=== PATIENT | female | born 1970 | race Hispanic/Latino ===

== ENCOUNTER → 2018-08-12 09:24 | Outpatient (CLI) | payer OTHER, SELFPAY ==
--- NOTE | 2018-08-12 09:26 | DI.RAD.S_ITS ---
PROCEDURE: XR CHEST 2V INDICATIONS: HISTORY OF BACILLUS CALMETTE, SCREENING EXAM TECHNIQUE: 2 views of the chest were acquired. COMPARISON: [facility], CHEST 2 VIEW, 08/21/2016, 15:58. [facility], CHEST 2 VIEW, 08/11/2017, 10:06. FINDINGS: Surgical changes and devices: None. Lungs and pleura: No pleural effusions or pneumothorax. Lungs are clear. Mediastinum: Mediastinal contours are normal. Heart size is normal. Bones and chest wall: No suspicious bony abnormalities. Soft tissues appear unremarkable. IMPRESSION: No active or chronic pulmonary tuberculosis identified radiographically. Dictated by: Isidoro Meeks [facility] Interpreted: Jennifer Chan MD on 08/12/2018 at 9:50 Approved by: Jennifer Chan M.D. on 08/12/2018 at 10:37
== END ==
PROVIDERS: Visit Provider Registered Nurse
DX: Z11.1 Encounter for screening for respiratory tuberculosis (principal); Z92.29 Personal history of other drug therapy
CPT/HCPCS: 71046

== ENCOUNTER → 2018-08-17 09:07 | Outpatient (CLI) | payer OTHER, SELFPAY ==
[2018-08-17 09:23] LABS: Add Manual Diff / Slide Review NO; Basophils Percent Auto 0.9 % (0-2); Eosinophils Percent Auto 2.4 % (2-4); Hematocrit 40.9 % (36-46); Hemoglobin 14.2 g/dL (12.0-16.0); Lymphocytes Percent Auto 33.6 % (25-40); Mean Corpuscular HGB Conc 34.7 % (30-36); Mean Corpuscular Volume 83.5 fL (80-100); Monocytes Percent Auto 5.8 % (3-14); Neutrophils Absolute Auto 3900 /uL (3000-5900); Neutrophils Percent Auto 57.3 % (50-75); Platelet Count 333 X10^3/uL (150-400); Red Cell Distribution Width 13.8 % (11.6-14.8); White Blood Cell Count 6.9 X10^3/uL (4.5-11.0)
[2018-08-17 09:38] LABS: Alanine Aminotransferase 40 IU/L (9-52); Albumin 4.4 g/dL (3.5-5.0); Albumin Globulin Ratio 1.5 (1.0-2.8); Alkaline Phosphatase 90 U/L (38-126); Aspartate Aminotransferase 23 IU/L (14-36); Bilirubin Total 0.6 mg/dL (0.2-1.3); Blood Urea Nitrogen 11 mg/dL (7-17); Calcium 8.9 mg/dL (8.4-10.2); Carbon Dioxide 28 mmol/L (22-32); Chloride 103 mmol/L (98-107); Cholesterol 232 mg/dL (140-199); Estimated Glomerular Filt Rate > 60.0 mL/min (>60); Glucose 95 mg/dL (70-100); HDL Cholesterol 41 mg/dL (40-60); HEMOLYSIS < 15 (0-50); LDL Cholesterol Calculated 120 mg/dL (<100); Sodium 143 mmol/L (137-145); Total Protein 7.4 g/dL (6.3-8.2); Triglycerides 356 mg/dL (35-150)
[2018-08-17 11:06] LABS: Thyroid Stimulating Hormone 1.47 uIU/mL (0.47-4.68)
== END ==
PROVIDERS: PCP Registered Nurse; Visit Provider Registered Nurse
DX: R42 Dizziness and giddiness (principal); E78.5 Hyperlipidemia, unspecified; Z01.82 Encounter for allergy testing
CPT/HCPCS: 36415; 80053; 80061; 84443; 85025; 86787

== ENCOUNTER → 2019-07-02 12:07 | Outpatient (CLI) | payer OTHER, SELFPAY ==
--- NOTE | 2019-07-02 12:10 | DI.MG.S_ITS ---
BILATERAL DIGITAL SCREENING MAMMOGRAM 3D/2D WITH CAD: 07/02/2019 CLINICAL: Routine screening. Family history of breast cancer. Comparison is made to exams dated: 09/02/2017 mammogram, 02/12/2015 mammogram, 10/12/2013 mammogram, and 09/06/2013 mammogram - [facility]. The tissue of both breasts is heterogeneously dense. This may lower the sensitivity of mammography. Current study was also evaluated with a Computer Aided Detection (CAD) system. No significant masses, calcifications, or other findings are seen in either breast. There has been no significant interval change. IMPRESSION: NEGATIVE There is no mammographic evidence of malignancy. A 1 year screening mammogram is recommended. This exam was interpreted at Station ID: [id number]. NOTE: For mammograms, a report in lay terms will be sent to the patient. Approximately 15% of breast malignancies will not be visualized mammographically. In the management of a palpable breast mass, a negative mammogram must not discourage biopsy of a clinically suspicious lesion. Electronically Signed By: Magan [email or web address]/[email or web address]:07/04/2019 17:43:34 letter sent: Normal Exam ACR BI-RADS Category 1: Negative [id number]
== END ==
PROVIDERS: PCP Registered Nurse; Visit Provider Registered Nurse
DX: Z12.31 Encounter for screening mammogram for malignant neoplasm of breast (principal); Z12.39 Encounter for other screening for malignant neoplasm of breast; Z80.3 Family history of malignant neoplasm of breast
CPT/HCPCS: 77063; 77067

== ENCOUNTER → 2019-07-09 10:39 | Outpatient (CLI) | payer OTHER, SELFPAY ==
[2019-07-09 13:39] LABS: Cholesterol 245 mg/dL (140-199); HDL Cholesterol 41 mg/dL (40-60); LDL Cholesterol Calculated 133 mg/dL (<100); Triglycerides 353 mg/dL (35-150)
== END ==
PROVIDERS: PCP Registered Nurse; Visit Provider Registered Nurse
DX: E78.5 Hyperlipidemia, unspecified (principal)
CPT/HCPCS: 36415; 80061

== ENCOUNTER → 2019-09-19 07:40 | Outpatient (CLI) | payer OTHER, SELFPAY ==
--- NOTE | 2019-09-19 07:42 | DI.RAD.S_ITS ---
PROCEDURE: XR CHEST 2V INDICATIONS: screening for tuberculosis TECHNIQUE: 2 views of the chest were acquired. COMPARISON: [facility], CR, XR CHEST 2V, 08/12/2018, 9:05. FINDINGS: Surgical changes and devices: None. Lungs and pleura: Lungs are clear. No pleural effusions or pneumothorax. Mediastinum: Mediastinal contours are normal. Heart size is normal. Bones and chest wall: No suspicious bony abnormalities. Soft tissues appear unremarkable. IMPRESSION: No acute disease. Dictated by: Paul Carmona M.D. on 09/19/2019 at 10:08 Approved by: Paul Carmona M.D. on 09/19/2019 at 10:08
== END ==
PROVIDERS: PCP Registered Nurse; Visit Provider Nurse Practitioner
DX: Z11.1 Encounter for screening for respiratory tuberculosis (principal)
CPT/HCPCS: 71046

== ENCOUNTER → 2019-10-10 09:30 | Outpatient (CLI) | payer OTHER, SELFPAY | PROVIDERS: PCP Registered Nurse; Visit Provider Physician Assistant | DX: J02.9 Acute pharyngitis, unspecified (principal) | CPT/HCPCS: 87070; 87077; 87147 ==

== ENCOUNTER → 2020-08-18 11:15 | Outpatient (CLI) | payer OTHER, SELFPAY ==
--- NOTE | 2020-08-18 11:18 | DI.RAD.S_ITS ---
PROCEDURE: XR CHEST 2V INDICATIONS: positive ppd test TECHNIQUE: 2 views of the chest were acquired. COMPARISON: [facility], CHEST 2 VIEW, 08/21/2016, 15:58. [facility], CHEST 2 VIEW, 08/11/2017, 10:06. Located [facility], , XR CHEST 2V, 08/12/2018, 9:05. [facility], , XR CHEST 2V, 09/19/2019, 7:45. FINDINGS: Surgical changes and devices: None. Lungs and pleura: Lungs are clear. No pleural effusions or pneumothorax. No pulmonary nodules are seen. No cavitary lesions are seen. Mediastinum: Mediastinal contours are normal. Heart size is normal. Bones and chest wall: No suspicious bony abnormalities. Soft tissues appear unremarkable. IMPRESSION: Normal chest plain films, without findings of active or remote pulmonary tuberculosis. Dictated by: Cristiano Armas M.D. on 08/18/2020 at 17:00 Approved by: Cristiano Armas M.D. on 08/18/2020 at 17:01
== END ==
PROVIDERS: PCP Registered Nurse; Referring Provider Registered Nurse; Visit Provider Registered Nurse
DX: R76.11 Nonspecific reaction to tuberculin skin test without active tuberculosis (principal)
CPT/HCPCS: 71046

== ENCOUNTER → 2021-08-26 17:10 | Outpatient (CLI) | payer OTHER, SELFPAY ==
--- NOTE | 2021-08-26 17:11 | DI.RAD.S_ITS ---
PROCEDURE: XR CHEST 2V INDICATIONS: BCG vaccine, hx of positive PPD test TECHNIQUE: 2 views of the chest were acquired. COMPARISON: [facility], CR, XR CHEST 2V, 08/18/2020, 11:09. FINDINGS: Surgical changes and devices: None. Lungs and pleura: Lungs are clear. No pleural effusions or pneumothorax. Mediastinum: Mediastinal contours are normal. Heart size is normal. Bones and chest wall: No suspicious bony abnormalities. Soft tissues appear unremarkable. IMPRESSION: No radiographic findings of tuberculosis. No acute cardiopulmonary process demonstrated radiographically. Dictated by: Beto Morales M.D. on 08/27/2021 at 9:05 Approved by: Beto Morales M.D. on 08/27/2021 at 9:06
== END ==
PROVIDERS: PCP Registered Nurse; Referring Provider Registered Nurse; Visit Provider Registered Nurse
DX: R76.11 Nonspecific reaction to tuberculin skin test without active tuberculosis (principal)
CPT/HCPCS: 71046

== ENCOUNTER → 2021-10-18 08:34 | Outpatient (CLI) | payer OTHER, SELFPAY ==
[2021-10-18 08:59] LABS: Alanine Aminotransferase 41 IU/L (<35); Albumin 4.3 g/dL (3.5-5.0); Albumin Globulin Ratio 1.5 (1.0-2.8); Alkaline Phosphatase 108 U/L (38-126); Aspartate Aminotransferase 29 IU/L (14-36); Bilirubin Total 0.4 mg/dL (0.2-1.3); Blood Urea Nitrogen 15 mg/dL (7-17); Calcium 8.7 mg/dL (8.4-10.2); Carbon Dioxide 25 mmol/L (22-32); Chloride 105 mmol/L (98-107); Cholesterol 250 mg/dL (140-199); Estimated Glomerular Filt Rate > 60.0 mL/min (>60); Globulin 2.9 g/dL (1.7-4.1); Glucose 98 mg/dL (70-100); HDL Cholesterol 46 mg/dL (40-60); HEMOLYSIS < 15 (0-50); Potassium 3.9 mmol/L (3.4-5.1); Sodium 137 mmol/L (137-145); Total Protein 7.2 g/dL (6.3-8.2)
[2021-10-18 09:13] LABS: Triglycerides 590 mg/dL (35-150)
== END ==
PROVIDERS: PCP Registered Nurse; Referring Provider Registered Nurse; Visit Provider Registered Nurse
DX: N95.1 Menopausal and female climacteric states (principal); E78.5 Hyperlipidemia, unspecified
CPT/HCPCS: 36415; 80053; 80061

== ENCOUNTER → 2021-11-18 11:58 | Outpatient (CLI) | payer OTHER, SELFPAY ==
[2021-11-18 13:38] LABS: COVID19 -Nasal RAPID POSITIVE (Negative)
== END ==
PROVIDERS: PCP Registered Nurse; Referring Provider Physician Assistant; Visit Provider Physician Assistant
DX: Z20.822 Contact with and (suspected) exposure to COVID-19 (principal)
CPT/HCPCS: 87635

== ENCOUNTER → 2022-09-06 10:55 | Outpatient (CLI) | payer OTHER, SELFPAY ==
--- NOTE | 2022-09-06 10:57 | DI.RAD.S_ITS ---
PROCEDURE: XR CHEST 2V INDICATIONS: Please evaluate for TB TECHNIQUE: 2 views of the chest were acquired. COMPARISON: [facility], CR, XR CHEST 2V, 08/18/2020, 11:09. [facility], CR, XR CHEST 2V, 09/19/2019, 7:45. [facility], CR, XR CHEST 2V, 08/26/2021, 17:08. FINDINGS: Surgical changes and devices: None. Lungs and pleura: Lungs are clear. No pleural effusions or pneumothorax. No focal infiltrates are seen. No suspicious pulmonary nodules or cavitary lesions are seen. Mediastinum: Mediastinal contours are normal. Heart size is normal. Bones and chest wall: No suspicious bony abnormalities. Soft tissues appear unremarkable. IMPRESSION: Unremarkable chest plain films, without findings of acute or remote pulmonary tuberculosis. Dictated by: Cristiano Armas M.D. on 09/06/2022 at 10:35 Approved by: Cristiano Armas M.D. on 09/06/2022 at 10:35
== END ==
PROVIDERS: PCP Registered Nurse; Referring Provider Chiropractor; Visit Provider Chiropractor
DX: Z01.89 Encounter for other specified special examinations (principal); M99.02 Segmental and somatic dysfunction of thoracic region
CPT/HCPCS: 71046

== ENCOUNTER → 2025-07-28 08:49 | Outpatient (CLI) | payer OTHER, SELFPAY ==
--- NOTE | 2025-07-28 08:53 | DI.RAD.S_ITS ---
PROCEDURE: XR CHEST 2V INDICATIONS: EVAL FOR TB TECHNIQUE: 2 views of the chest were acquired. COMPARISON: [facility], CR, XR CHEST 2V, 09/06/2022, 11:18. [facility], CR, XR CHEST 2V, 08/26/2021, 17:08. FINDINGS: Surgical changes and devices: None. Lungs and pleura: Lungs are clear. No pleural effusions or pneumothorax. Mediastinum: Mediastinal contours are normal. Heart size is normal. Bones and chest wall: No suspicious bony abnormalities. Soft tissues appear unremarkable. IMPRESSION: No acute cardiopulmonary abnormality is seen. No radiographic evidence of chronic active or acute TB. Dictated by: Gianni Gustafson M.D. on 07/28/2025 at 9:10 Approved by: Gianni Gustafson M.D. on 07/28/2025 at 9:11
== END ==
PROVIDERS: Referring Provider Obstetrics & Gynecology; Visit Provider Obstetrics & Gynecology
DX: Z01.818 Encounter for other preprocedural examination (principal)
CPT/HCPCS: 71046